=== PATIENT | female | born 1950 | race Caucasian/White ===

== ENCOUNTER 2016-08-20 15:19 | Observation (INO) ==
--- NOTE | 2016-08-20 15:28 | Emergency Department Note ---
Disposition Clinical Impression: Abdominal pain, Vomiting, Lactic acidosis, Abnormal urinalysis, Frail elderly, Leukocytosis, Hypokalemia, Abdominal pain, Abdominal pain, Left sided abdominal pain, Pneumobilia, Elevated C-reactive protein (CRP), Hypokalemia Disposition: Admitted As Inpatient Referrals: Arnold Tanner MD [Primary Care Provider] - General Adult HPI - General Chief complaint: ED Abdominal Pain Stated complaint: Lower bowel not working// sent from [facility] Time Seen by Provider: 08/20/16 15:27 Source: patient Limitations: no limitations - History of Present Illness HPI Narrative: 66-year-old female reports emergent department complaining of abdominal pain which has been present for about 2 days. She went to urgent care and reportedly they noticed an abnormal abdominal X-Ray series. They sent the patient to the ED for further evaluation regarding left-sided abdominal pain. They note a differential of possible bowel obstruction kidney stone or diverticulitis. The patient has had a history of diverticulitis remotely. The patient has had pain for a few days. She has had recurrent vomiting which has been nonbloody, but her last episode was wednesday. She does not take blood thinners. The patient has had a slight cough, there is no history of shortness of breath or chest pain. The patient does describe slight left neck pain anteriorly on occasion however this is not necessarily been associated with exertion.. There is no history of rash or flank pain. There is no history of syncope leg swelling or pain. No coughing up blood. The patient has no history of malignancy or previous DVT or PE. She has no known coronary disease. No history of injury. The patient reports significant abdominal pain , it hurts when she walks or moves or coughs. She had remote abdominal surgery involving a cholecystectomy and liver surgery per the patient. The patient has had no recent surgery. She is not known to be diabetic but is hypertensive and hyperlipidemic. There is no history of urinary symptomatology. Onset (ago): day(s) Pain Scale: 8 - Related Data Home Medications Medication Instructions Recorded Confirmed Albuterol Sulfate [Proair 90 mcg IH PRN PRN 10/23/15 08/20/16 Respiclick] FLUoxetine HCl [Prozac] 20 mg PO QAM 10/23/15 08/20/16 Hydrochlorothiazide 25 mg PO DAILY 10/23/15 08/20/16 Hydrocortisone [Cortef] 5 mg PO TID 10/23/15 08/20/16 LORazepam [Ativan] 1 mg PO QPM 10/23/15 08/20/16 Levothyroxine [Synthroid] 112 mcg PO 0630 10/23/15 08/20/16 Oxycodone HCl/Acetaminophen 1 each PO TID PRN 10/23/15 08/20/16 [Percocet 5-325 mg Tablet] Pravastatin Sodium [Pravachol] 80 mg PO QDPC 10/23/15 08/20/16 Tiotropium [place] [Spiriva 4 gm IH QAM 10/23/15 08/20/16 Respimat] Previous Rx's Medication Instructions Recorded Varenicline tartrate [Chantix 1 each PO AD #53 tab.ds.pk 10/27/15 Starter Month Pack] Allergies Allergy/AdvReac Type Severity Reaction Status Date / Time acetaminophen [From Vicodin] Allergy Shakiness Verified 08/20/16 16:13 hydrocodone [From Vicodin] Allergy Shakiness Verified 08/20/16 16:13 Iodinated Contrast Media - Allergy Rash Verified 08/20/16 16:13 Oral and [Iodinated Contrast Media - IV Dye] iodine Allergy Rash Verified 08/20/16 16:13 morphine Allergy Rash Verified 08/20/16 16:13 Penicillins [PCN] Allergy Rash Verified 08/20/16 16:13 All systems ED: reviewed and negative except as stated. 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 Absent: miosis, mydriasis - ENT ENT exam: normal exam, normal oropharynx, mucous membranes moist, TM's normal bilaterally, normal external ear exam - Neck Neck exam: Present: normal inspection, full ROM, trachea midline - Chest Chest inspection: Present: normal inspection, symmetric chest wall rise. Absent : tenderness - Respiratory Respiratory exam: Present: normal lung sounds bilaterally. Absent: respiratory distress - Cardiovascular Cardiovascular exam: Present: regular rate, normal rhythm, normal heart sounds - Abdominal Exam Abdominal exam: Present: soft, tenderness, incision, scar. Absent: distention, rebound, rigidity, trauma, psoas sign, obturator sign, Velazquez's sign, Rovsing's sign, tenderness at McBurney's Point, pulsatile mass, hernia Abdominal tenderness: Present: LUQ, LLQ, epigastrium, moderate - Extremities Exam Extremities exam: Present: normal inspection, full ROM, normal capillary refill. Absent: tenderness, pedal edema, joint swelling, calf tenderness - Expanded Lower Extremity Exam Neurovascular/Tendon exam: Absent: motor deficit, sensory deficit, tendon deficit, extremity cold to touch - Back Exam Back exam: Present: normal inspection, full ROM. Absent: tenderness, CVA tenderness (R), CVA tenderness (L), muscle spasm, vertebral tenderness - Neurological Exam Neurological exam: Present: alert, oriented X3, CN II-XII intact. Absent: motor sensory deficit - Psychiatric Psychiatric exam: Present: normal affect, normal mood - Skin Skin exam: Present: warm, dry, intact, normal color. Absent: rash, cyanosis, diaphoresis, erythema, pallor, mottled Course Course Narrative: Secondary abdominal exam reveals persistent mid upper and left upper abdominal pain. The patient seems to have improved with pain medication. Vital Signs Temperature 98.1 F 08/20/16 15:21 Pulse Rate 73 08/20/16 15:21 Respiratory Rate 18 08/20/16 15:21 Blood Pressure 156/75 08/20/16 15:21 O2 Sat by Pulse Oximetry 99 08/20/16 15:21 Temperature 98.1 F 08/20/16 15:21 Pulse Rate 65 08/20/16 17:38 Respiratory Rate 16 08/20/16 17:38 Blood Pressure 118/63 08/20/16 17:38 O2 Sat by Pulse Oximetry 97 08/20/16 17:38 Oxygen Delivery Oxygen Delivery Room Air Medical Decision Making - MDM Narrative Medical decision making narrative: The patient's CT chest abdomen pelvis are unrevealing. There appeared to be stable and chronic changes per the radiologist. Of note the patient's CRP is markedly elevated, she does have urinary changes. The patient's cardiac testing is negative. She was given Dilaudid and Zofran ED which did relieve her pain to a degree however she was significantly tender status post in the midepigastrium and left upper abdominal area. I reviewed the case with the patient, she reported significant pain, she did not feel she was well enough to go home. Based on the patient's abdominal pain, vascular risk factors, age, markedly elevated CRP and elevated lactate, I felt it may be reasonable to observe the patient in the hospital, I consulted the hospitalist regarding admission for undifferentiated abdominal pain, ischemia is a consideration. The patient's CPK is negative. She does have urinary changes, cultures have been ordered. The patient was given IV fluids in the ED. She is currently stable. - Lab Data Lab results reviewed: Yes I reviewed the patient's lab results. Result diagrams: 08/20/16 16:00 08/20/16 16:00 Lab Results 08/20/16 08/20/16 08/20/16 Range/Units 16:00 16:00 16:00 WBC 11.4 H (4.3-11.1) K/mcL RBC 4.89 (3.82-4.97) M/mcL Hgb 13.8 (11.5-15.4) g/dL Hct 42.9 (35.3-44.9) % MCV 87.7 (83.0-100.0) fL MCH 28.2 (28.0-33.3) pg MCHC 32.2 (31.6-35.5) g/dL RDW 14.6 H (11.5-14.5) % Plt Count 149 (140-400) K/mcL MPV 9.9 (9.4-12.4) fL Immature Gran % 0.4 (0-4) % Seg Neutrophils % 72.9 % Lymphocytes % 15.6 % Monocytes % 10.1 % Eosinophils % 0.6 % Basophils % 0.4 % Neutrophils # 8.3 (1.6-8.9) K/mcL Lymphocytes # 1.8 (0.6-4.6) K/mcL Monocytes # 1.2 (0.0-1.3) K/mcL Eosinophils # 0.1 (0.0-0.6) K/mcL Basophils # 0.1 (0.0-0.2) K/mcL PT 12.0 (9.4-12.1) Seconds INR 1.1 APTT 33.5 (26.0-36.0) Seconds Sodium 136 (136-145) mEq/L Potassium 3.3 L (3.5-4.5) mEq/L Chloride 100 (98-109) mEq/L Carbon Dioxide 24 (19-29) mEq/L BUN 15 (7-20) mg/dL Creatinine 0.72 (0.57-1.11) mg/dL Est GFR ( Amer) > 60 (> 60) Est GFR (Non-Af Amer) > 60 (> 60) BUN/Creatinine Ratio 21 (6-26) Glucose 104 H (70-99) mg/dL Calculated Osmolality 283 (280-300) Lactic Acid (0.5-2.2) mmol/L Calcium 9.6 (8.6-10.8) mg/dL Total Bilirubin 0.8 (0.2-1.2) mg/dL Direct Bilirubin 0.3 (0.0-0.5) mg/dL Indirect Bilirubin 0.5 (0.0-1.2) mg/dL AST 31 (5-34) Units/L ALT 37 (0-55) Units/L Alkaline Phosphatase 83 (38-126) Units/L Creatine Kinase (29-168) Units/L Troponin I (0-0.03) ng/mL C-Reactive Protein (Less than 5) mg/L B-Natriuretic Peptide (0-100) pg/mL Serum Total Protein 7.3 (6.0-8.3) g/dL Albumin 3.8 (3.5-5.0) g/dL Globulin 3.5 (2.4-3.5) g/dL Albumin/Globulin Ratio 1.1 (1.1-2.2) Lipase 5 L (8-78) Units/L Urine Color (Yellow) Urine Clarity (Clear) Urine pH (5.0-8.0) pH Units Ur Specific [place] (1.010-1.025) Urine Protein (Neg-Trace) mg/dL Urine Glucose (UA) (Normal) mg/dL Urine Ketones (Negative) mg/dL Urine Blood (Negative) Urine Nitrite (Negative) Urine Bilirubin (Negative) Urine Urobilinogen (Normal) mg/dL Ur Leukocyte Esterase (Negative) Urine Microscopic RBC (0-3) per hpf Urine Microscopic WBC (0-3) per hpf Ur Squamous Epith Cells (None-Few) per lpf Urine Bacteria (None-Few) per hpf Hyaline Casts (None-Few) per lpf Ur Culture Indicated? (NO) 08/20/16 08/20/16 08/20/16 Range/Units 16:00 16:00 16:00 WBC (4.3-11.1) K/mcL RBC (3.82-4.97) M/mcL Hgb (11.5-15.4) g/dL Hct (35.3-44.9) % MCV (83.0-100.0) fL MCH (28.0-33.3) pg MCHC (31.6-35.5) g/dL RDW (11.5-14.5) % Plt Count (140-400) K/mcL MPV (9.4-12.4) fL Immature Gran % (0-4) % Seg Neutrophils % % Lymphocytes % % Monocytes % % Eosinophils % % Basophils % % Neutrophils # (1.6-8.9) K/mcL Lymphocytes # (0.6-4.6) K/mcL Monocytes # (0.0-1.3) K/mcL Eosinophils # (0.0-0.6) K/mcL Basophils # (0.0-0.2) K/mcL PT (9.4-12.1) Seconds INR APTT (26.0-36.0) Seconds Sodium (136-145) mEq/L Potassium (3.5-4.5) mEq/L Chloride (98-109) mEq/L Carbon Dioxide (19-29) mEq/L BUN (7-20) mg/dL Creatinine (0.57-1.11) mg/dL Est GFR ( Amer) (> 60) Est GFR (Non-Af Amer) (> 60) BUN/Creatinine Ratio (6-26) Glucose (70-99) mg/dL Calculated Osmolality (280-300) Lactic Acid 2.6 H (0.5-2.2) mmol/L Calcium (8.6-10.8) mg/dL Total Bilirubin (0.2-1.2) mg/dL Direct Bilirubin (0.0-0.5) mg/dL Indirect Bilirubin (0.0-1.2) mg/dL AST (5-34) Units/L ALT (0-55) Units/L Alkaline Phosphatase (38-126) Units/L Creatine Kinase (29-168) Units/L Troponin I 0.00 (0-0.03) ng/mL C-Reactive Protein 171 H (Less than 5) mg/L B-Natriuretic Peptide (0-100) pg/mL Serum Total Protein (6.0-8.3) g/dL Albumin (3.5-5.0) g/dL Globulin (2.4-3.5) g/dL Albumin/Globulin Ratio (1.1-2.2) Lipase (8-78) Units/L Urine Color (Yellow) Urine Clarity (Clear) Urine pH (5.0-8.0) pH Units Ur Specific [place] (1.010-1.025) Urine Protein (Neg-Trace) mg/dL Urine Glucose (UA) (Normal) mg/dL Urine Ketones (Negative) mg/dL Urine Blood (Negative) Urine Nitrite (Negative) Urine Bilirubin (Negative) Urine Urobilinogen (Normal) mg/dL Ur Leukocyte Esterase (Negative) Urine Microscopic RBC (0-3) per hpf Urine Microscopic WBC (0-3) per hpf Ur Squamous Epith Cells (None-Few) per lpf Urine Bacteria (None-Few) per hpf Hyaline Casts (None-Few) per lpf Ur Culture Indicated? (NO) 08/20/16 08/20/16 08/20/16 Range/Units 16:00 16:00 17:28 WBC (4.3-11.1) K/mcL RBC (3.82-4.97) M/mcL Hgb (11.5-15.4) g/dL Hct (35.3-44.9) % MCV (83.0-100.0) fL MCH (28.0-33.3) pg MCHC (31.6-35.5) g/dL RDW (11.5-14.5) % Plt Count (140-400) K/mcL MPV (9.4-12.4) fL Immature Gran % (0-4) % Seg Neutrophils % % Lymphocytes % % Monocytes % % Eosinophils % % Basophils % % Neutrophils # (1.6-8.9) K/mcL Lymphocytes # (0.6-4.6) K/mcL Monocytes # (0.0-1.3) K/mcL Eosinophils # (0.0-0.6) K/mcL Basophils # (0.0-0.2) K/mcL PT (9.4-12.1) Seconds INR APTT (26.0-36.0) Seconds Sodium (136-145) mEq/L Potassium (3.5-4.5) mEq/L Chloride (98-109) mEq/L Carbon Dioxide (19-29) mEq/L BUN (7-20) mg/dL Creatinine (0.57-1.11) mg/dL Est GFR ( Amer) (> 60) Est GFR (Non-Af Amer) (> 60) BUN/Creatinine Ratio (6-26) Glucose (70-99) mg/dL Calculated Osmolality (280-300) Lactic Acid (0.5-2.2) mmol/L Calcium (8.6-10.8) mg/dL Total Bilirubin (0.2-1.2) mg/dL Direct Bilirubin (0.0-0.5) mg/dL Indirect Bilirubin (0.0-1.2) mg/dL AST (5-34) Units/L ALT (0-55) Units/L Alkaline Phosphatase (38-126) Units/L Creatine Kinase 56 (29-168) Units/L Troponin I (0-0.03) ng/mL C-Reactive Protein (Less than 5) mg/L B-Natriuretic Peptide 41 (0-100) pg/mL Serum Total Protein (6.0-8.3) g/dL Albumin (3.5-5.0) g/dL Globulin (2.4-3.5) g/dL Albumin/Globulin Ratio (1.1-2.2) Lipase (8-78) Units/L Urine Color Dark Yellow (Yellow) Urine Clarity Cloudy A (Clear) Urine pH 7.0 (5.0-8.0) pH Units Ur Specific [place] 1.023 (1.010-1.025) Urine Protein Trace (Neg-Trace) mg/dL Urine Glucose (UA) Normal (Normal) mg/dL Urine Ketones Negative (Negative) mg/dL Urine Blood Moderate H (Negative) Urine Nitrite Negative (Negative) Urine Bilirubin Small H (Negative) Urine Urobilinogen Normal (Normal) mg/dL Ur Leukocyte Esterase Trace H (Negative) Urine Microscopic RBC 15-30 H (0-3) per hpf Urine Microscopic WBC 0-3 (0-3) per hpf Ur Squamous Epith Cells Many H (None-Few) per lpf Urine Bacteria None Seen (None-Few) per hpf Hyaline Casts None Seen (None-Few) per lpf Ur Culture Indicated? YES A (NO) - Radiology Data Radiology results reviewed: Yes I reviewed the patient's radiology results.
[2016-08-20] MEDS ORDERED: *HR* HYDROmorphone (PF) 1 MG/ML SYRINGE IVP ONE (15:42)
[2016-08-20] MEDS ORDERED: Ondansetron 4 MG/2 ML VIAL IVP ONE (15:42)
[2016-08-20 16:18] LABS: Basophils # 0.1 K/mcL (0.0-0.2); Basophils % 0.4 %; Eosinophils # 0.1 K/mcL (0.0-0.6); Eosinophils % 0.6 %; Hematocrit 42.9 % (35.3-44.9); Hemoglobin 13.8 g/dL (11.5-15.4); Immature Granulocytes % 0.4 % (0-4); Lymphocytes # 1.8 K/mcL (0.6-4.6); Lymphocytes % 15.6 %; Mean Corpuscular HGB Conc 32.2 g/dL (31.6-35.5); Mean Corpuscular Hemoglobin 28.2 pg (28.0-33.3); Mean Corpuscular Volume 87.7 fL (83.0-100.0); Mean Platelet Volume 9.9 fL (9.4-12.4); Monocytes # 1.2 K/mcL (0.0-1.3); Monocytes % 10.1 %; Neutrophils # 8.3 K/mcL (1.6-8.9); Platelet Count 149 K/mcL (140-400); Red Blood Count 4.89 M/mcL (3.82-4.97); Red Cell Distribution Width 14.6 % (11.5-14.5); Segmented Neutrophils % 72.9 %
[2016-08-20 16:23] LABS: INR 1.1
[2016-08-20 16:25] LABS: Activated Partial Thrombo Time 33.5 Seconds (26.0-36.0)
[2016-08-20 16:34] LABS: Alanine Aminotransferase 37 Units/L (0-55); Albumin 3.8 g/dL (3.5-5.0); Albumin/Globulin Ratio 1.1 (1.1-2.2); Alkaline Phosphatase 83 Units/L (38-126); Aspartate Amino Transferase 31 Units/L (5-34); BUN/Creatinine Ratio 21 (6-26); Bilirubin,Direct 0.3 mg/dL (0.0-0.5); Bilirubin,Indirect 0.5 mg/dL (0.0-1.2); Bilirubin,Total 0.8 mg/dL (0.2-1.2); Blood Urea Nitrogen 15 mg/dL (7-20); Calcium 9.6 mg/dL (8.6-10.8); Carbon Dioxide 24 mEq/L (19-29); Chloride 100 mEq/L (98-109); Globulin 3.5 g/dL (2.4-3.5); Glucose 104 mg/dL (70-99); Lipase 5 Units/L (8-78); Osmolality,Calculated 283 (280-300); Potassium 3.3 mEq/L (3.5-4.5); Sodium 136 mEq/L (136-145); Total Protein 7.3 g/dL (6.0-8.3); eGFR For African Americans > 60 (> 60); eGFR For Non-African Americans > 60 (> 60)
[2016-08-20] MEDS ORDERED: 0.9 % Sodium Chloride 1,000 ML IVC ONE (17:05)
[2016-08-20 17:40] LABS: Bilirubin,Urine Small (Negative); Blood,Urine Moderate (Negative); Clarity,Urine Cloudy (Clear); Color,Urine Dark Yellow (Yellow); Glucose,Urine (UA) Normal (Normal); Ketones,Urine Negative (Negative); Leukocyte Esterase,Urine Trace (Negative); Nitrite,Urine Negative (Negative); Protein,Urine Trace mg/dL (Neg-Trace); Specific Gravity,Urine 1.023 (1.010-1.025); Urobilinogen,Urine Normal (Normal)
[2016-08-20 17:41] LABS: Bacteria,Urine None Seen per hpf (None-Few); Hyaline Casts,Urine None Seen per lpf (None-Few); Squamous Epithelial Cell,Urine Many per lpf (None-Few); WBC,Urine 0-3 per hpf (0-3)
[2016-08-20 17:50] LABS: RBC,Urine 15-30 per hpf (0-3)
[2016-08-20] MEDS ORDERED: *HR* LORazepam 1 MG TABLET PO PRN (18:57)
[2016-08-20] MEDS ORDERED: Ondansetron 4 MG/2 ML VIAL IVP PRN (19:01)
[2016-08-20] MEDS ORDERED: Naloxone 0.4 MG/ML INJ IVP PRN (19:01)
[2016-08-20] MEDS ORDERED: *HR* HYDROmorphone (PF) 1 MG/ML SYRINGE IVP PRN (19:05)
--- NOTE | 2016-08-20 19:12 | Internal Med History&Physical ---
Date of Encounter: 08/20/16 Time of Encounter: 18:35 Internal Medicine - H&P: HPI Chief complaint: Abdominal pain, nausea x 2 days. Admitted From: Emergency Dept Plans for Post Hospital Care: Home History of present illness: Ms. Stokes is a 66 year old with multiple cardiovascular risk factors (without diagnosed CAD), and continuing smoker, diverticulosis with few episodes of diverticulitis presents with a 2-day history of epigastric and upper left-sided abdominal pain, associated with nausea, she had a few vomiting episodes, she reports sore throat which she relates to vomiting. Abdominal pain is worse with movement and coughing. She had vague upper sternal chest pain at rest, as well as mild left-sided neck pain, on the first day, though this has since resolved. No diarrhea, no hematochezia, no hematemesis, no fever, no other, respiratory, urinary symptoms, no rash. She reports that she felt some fullness in both ears as a prodrome to full-onset of symptoms. Abdominal pain was however sudden. No sick contacts, no unusual ingestion. No prior history of abdominal pain related to meals. No weight loss. The personal history history of acute pancreatitis, malignancy or DVT/PE. She had remote history of open cholecystectomy and bile duct surgery due to impacted gall stone. LAST COLONOSCOPY WAS IN 2000 (polyps removed). She has chronic back pain from 2 prior back surgery which she reports is controlled with maintenance dose of Percocet. She denies other symptoms on ROS. The She is FULL CODE (but does not want to be maintained in a prolonged vegetative state) as per discussion. She nominates her daughter, Nissa Wolf as her NOK/POA ([phone], ). 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 Alcohol use: Reports: none Drug use: Reports: none Family history: reviewed , non-contributory. ROS: A 10-point ROS was performed, positives and relevant negatives are detailed , system-symptom not mentioned is assumed negative unless otherwise stated. Positives: Abdominal pain, nausea, vomiting Negatives: No PND or orthopnea, no chest pain no sore-throat, no hemoptysis, hematemesis, or hematochezia, no abdominal pain or diarrhea, no urinary or new- onset neurological symptoms. Vital Signs Temperature 98.1 F 08/20/16 15:21 Pulse Rate 73 08/20/16 15:21 Respiratory Rate 18 08/20/16 15:21 Blood Pressure 156/75 08/20/16 15:21 O2 Sat by Pulse Oximetry 99 08/20/16 15:21 Temperature 98.1 F 08/20/16 15:21 Pulse Rate 65 08/20/16 17:38 Respiratory Rate 16 08/20/16 17:38 Blood Pressure 118/63 08/20/16 17:38 O2 Sat by Pulse Oximetry 97 08/20/16 17:38 In obvious distress, non-toxic looking. not pale, anicteric, afebrile, acyanotic. Moist mucosa, no thrush, no mucositis or glossitis HEENT: No JVD, no cervical or axillary lymphadenopathy, I did not examine her pharynx Chest : CTAB, Heart: RRR, HS1/2, Abdomen: rather vertical long right sub-coastal, access for open cholecystectomy , soft, tender+++ in the epigastrium, tender++ in the left uper quadrant, no guarding, no masses, bowel sounds+ SIDE LASTER: AAO X 3, no gross focal neurological signs. Skin: No active skin lesion (no rash, petechiae, purpura), no mass lesions. Extremities: normal pedal pulses, no calf tenderness. no axillary or inguinal lymphadenopathy. Lab Results 08/20/16 08/20/16 08/20/16 Range/Units 16:00 16:00 16:00 WBC 11.4 H (4.3-11.1) K/mcL RBC 4.89 (3.82-4.97) M/mcL Hgb 13.8 (11.5-15.4) g/dL Hct 42.9 (35.3-44.9) % MCV 87.7 (83.0-100.0) fL MCH 28.2 (28.0-33.3) pg MCHC 32.2 (31.6-35.5) g/dL RDW 14.6 H (11.5-14.5) % Plt Count 149 (140-400) K/mcL MPV 9.9 (9.4-12.4) fL Immature Gran % 0.4 (0-4) % Seg Neutrophils % 72.9 % Lymphocytes % 15.6 % Monocytes % 10.1 % Eosinophils % 0.6 % Basophils % 0.4 % Neutrophils # 8.3 (1.6-8.9) K/mcL Lymphocytes # 1.8 (0.6-4.6) K/mcL Monocytes # 1.2 (0.0-1.3) K/mcL Eosinophils # 0.1 (0.0-0.6) K/mcL Basophils # 0.1 (0.0-0.2) K/mcL PT 12.0 (9.4-12.1) Seconds INR 1.1 APTT 33.5 (26.0-36.0) Seconds Sodium 136 (136-145) mEq/L Potassium 3.3 L (3.5-4.5) mEq/L Chloride 100 (98-109) mEq/L Carbon Dioxide 24 (19-29) mEq/L BUN 15 (7-20) mg/dL Creatinine 0.72 (0.57-1.11) mg/dL Est GFR ( Amer) > 60 (> 60) Est GFR (Non-Af Amer) > 60 (> 60) BUN/Creatinine Ratio 21 (6-26) Glucose 104 H (70-99) mg/dL Calculated Osmolality 283 (280-300) Lactic Acid (0.5-2.2) mmol/L Calcium 9.6 (8.6-10.8) mg/dL Total Bilirubin 0.8 (0.2-1.2) mg/dL Direct Bilirubin 0.3 (0.0-0.5) mg/dL Indirect Bilirubin 0.5 (0.0-1.2) mg/dL AST 31 (5-34) Units/L ALT 37 (0-55) Units/L Alkaline Phosphatase 83 (38-126) Units/L Creatine Kinase (29-168) Units/L Troponin I (0-0.03) ng/mL C-Reactive Protein (Less than 5) mg/L B-Natriuretic Peptide (0-100) pg/mL Serum Total Protein 7.3 (6.0-8.3) g/dL Albumin 3.8 (3.5-5.0) g/dL Globulin 3.5 (2.4-3.5) g/dL Albumin/Globulin Ratio 1.1 (1.1-2.2) Lipase 5 L (8-78) Units/L Urine Color (Yellow) Urine Clarity (Clear) Urine pH (5.0-8.0) pH Units Ur Specific Hoffman (1.010-1.025) Urine Protein (Neg-Trace) mg/dL Urine Glucose (UA) (Normal) mg/dL Urine Ketones (Negative) mg/dL Urine Blood (Negative) Urine Nitrite (Negative) Urine Bilirubin (Negative) Urine Urobilinogen (Normal) mg/dL Ur Leukocyte Esterase (Negative) Urine Microscopic RBC (0-3) per hpf Urine Microscopic WBC (0-3) per hpf Ur Squamous Epith Cells (None-Few) per lpf Urine Bacteria (None-Few) per hpf Hyaline Casts (None-Few) per lpf Ur Culture Indicated? (NO) 08/20/16 08/20/16 08/20/16 Range/Units 16:00 16:00 16:00 WBC (4.3-11.1) K/mcL RBC (3.82-4.97) M/mcL Hgb (11.5-15.4) g/dL Hct (35.3-44.9) % MCV (83.0-100.0) fL MCH (28.0-33.3) pg MCHC (31.6-35.5) g/dL RDW (11.5-14.5) % Plt Count (140-400) K/mcL MPV (9.4-12.4) fL Immature Gran % (0-4) % Seg Neutrophils % % Lymphocytes % % Monocytes % % Eosinophils % % Basophils % % Neutrophils # (1.6-8.9) K/mcL Lymphocytes # (0.6-4.6) K/mcL Monocytes # (0.0-1.3) K/mcL Eosinophils # (0.0-0.6) K/mcL Basophils # (0.0-0.2) K/mcL PT (9.4-12.1) Seconds INR APTT (26.0-36.0) Seconds Sodium (136-145) mEq/L Potassium (3.5-4.5) mEq/L Chloride (98-109) mEq/L Carbon Dioxide (19-29) mEq/L BUN (7-20) mg/dL Creatinine (0.57-1.11) mg/dL Est GFR ( Amer) (> 60) Est GFR (Non-Af Amer) (> 60) BUN/Creatinine Ratio (6-26) Glucose (70-99) mg/dL Calculated Osmolality (280-300) Lactic Acid 2.6 H (0.5-2.2) mmol/L Calcium (8.6-10.8) mg/dL Total Bilirubin (0.2-1.2) mg/dL Direct Bilirubin (0.0-0.5) mg/dL Indirect Bilirubin (0.0-1.2) mg/dL AST (5-34) Units/L ALT (0-55) Units/L Alkaline Phosphatase (38-126) Units/L Creatine Kinase (29-168) Units/L Troponin I 0.00 (0-0.03) ng/mL C-Reactive Protein 171 H (Less than 5) mg/L B-Natriuretic Peptide (0-100) pg/mL Serum Total Protein (6.0-8.3) g/dL Albumin (3.5-5.0) g/dL Globulin (2.4-3.5) g/dL Albumin/Globulin Ratio (1.1-2.2) Lipase (8-78) Units/L Urine Color (Yellow) Urine Clarity (Clear) Urine pH (5.0-8.0) pH Units Ur Specific Hoffman (1.010-1.025) Urine Protein (Neg-Trace) mg/dL Urine Glucose (UA) (Normal) mg/dL Urine Ketones (Negative) mg/dL Urine Blood (Negative) Urine Nitrite (Negative) Urine Bilirubin (Negative) Urine Urobilinogen (Normal) mg/dL Ur Leukocyte Esterase (Negative) Urine Microscopic RBC (0-3) per hpf Urine Microscopic WBC (0-3) per hpf Ur Squamous Epith Cells (None-Few) per lpf Urine Bacteria (None-Few) per hpf Hyaline Casts (None-Few) per lpf Ur Culture Indicated? (NO) 08/20/16 08/20/16 08/20/16 Range/Units 16:00 16:00 17:28 WBC (4.3-11.1) K/mcL RBC (3.82-4.97) M/mcL Hgb (11.5-15.4) g/dL Hct (35.3-44.9) % MCV (83.0-100.0) fL MCH (28.0-33.3) pg MCHC (31.6-35.5) g/dL RDW (11.5-14.5) % Plt Count (140-400) K/mcL MPV (9.4-12.4) fL Immature Gran % (0-4) % Seg Neutrophils % % Lymphocytes % % Monocytes % % Eosinophils % % Basophils % % Neutrophils # (1.6-8.9) K/mcL Lymphocytes # (0.6-4.6) K/mcL Monocytes # (0.0-1.3) K/mcL Eosinophils # (0.0-0.6) K/mcL Basophils # (0.0-0.2) K/mcL PT (9.4-12.1) Seconds INR APTT (26.0-36.0) Seconds Sodium (136-145) mEq/L Potassium (3.5-4.5) mEq/L Chloride (98-109) mEq/L Carbon Dioxide (19-29) mEq/L BUN (7-20) mg/dL Creatinine (0.57-1.11) mg/dL Est GFR ( Amer) (> 60) Est GFR (Non-Af Amer) (> 60) BUN/Creatinine Ratio (6-26) Glucose (70-99) mg/dL Calculated Osmolality (280-300) Lactic Acid (0.5-2.2) mmol/L Calcium (8.6-10.8) mg/dL Total Bilirubin (0.2-1.2) mg/dL Direct Bilirubin (0.0-0.5) mg/dL Indirect Bilirubin (0.0-1.2) mg/dL AST (5-34) Units/L ALT (0-55) Units/L Alkaline Phosphatase (38-126) Units/L Creatine Kinase 56 (29-168) Units/L Troponin I (0-0.03) ng/mL C-Reactive Protein (Less than 5) mg/L B-Natriuretic Peptide 41 (0-100) pg/mL Serum Total Protein (6.0-8.3) g/dL Albumin (3.5-5.0) g/dL Globulin (2.4-3.5) g/dL Albumin/Globulin Ratio (1.1-2.2) Lipase (8-78) Units/L Urine Color Dark Yellow (Yellow) Urine Clarity Cloudy A (Clear) Urine pH 7.0 (5.0-8.0) pH Units Ur Specific Hoffman 1.023 (1.010-1.025) Urine Protein Trace (Neg-Trace) mg/dL Urine Glucose (UA) Normal (Normal) mg/dL Urine Ketones Negative (Negative) mg/dL Urine Blood Moderate H (Negative) Urine Nitrite Negative (Negative) Urine Bilirubin Small H (Negative) Urine Urobilinogen Normal (Normal) mg/dL Ur Leukocyte Esterase Trace H (Negative) Urine Microscopic RBC 15-30 H (0-3) per hpf Urine Microscopic WBC 0-3 (0-3) per hpf Ur Squamous Epith Cells Many H (None-Few) per lpf Urine Bacteria None Seen (None-Few) per hpf Hyaline Casts None Seen (None-Few) per lpf Ur Culture Indicated? YES A (NO) Non-contrast CT chest/abdomen: non-acute., no nephrolithisiasis or obstructive uropathy, no perinephric stranding, no evidence of enteritis, colitis or diverticulitis, no bowel obstruction. IMP Acute abdomen: differentials include bowel ischemia , Coxsackie B infection with pleurisy, acute gastritis, acute on chronic adrenal insufficiency Microscopic hematuria Lactic acidosis Hypokalemia Chronic morbidities HTN HLD Chronic back pain Chronic tobacco abuse Chronic adrenal insufficiency COPD /asthma stable Hypothyroidism PLAN Admit Keep NPO Double home dose of hydrocortisone MRA abdomen/pelvis WITHOUT CONTRAST (due to history of contrast allergy) Coxsackie B antibodies IV Protonix 40 mg BID. Optimal analgesia with hydromorphone. Serial abdominal examination Repeat lactate. CBC/BMP in the AM Continue other essential medications of chronic morbidities DVT prophylaxis with Lovenox 40mg SC QD I will not consider surgical opinion at this time until more information is available. The patient is stable. I discussed my assessment with the patient, her daughter was at bedside, she verbalized understanding and is agreeable tyo admission. 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) Psychiatric history: ADHD, depression - Past Surgical History Surgical History: cholecystectomy, hysterectomy - Social History Smoking Status: Current every day smoker Smokeless Tobacco Status: No Alcohol use: none Drug use: none Internal Medicine - H&P: Meds Albuterol Sulfate [Proair Respiclick] 2 puff IH Q4H PRN 10/23/15 [History] FLUoxetine HCl [Prozac] 20 mg PO QAM 10/23/15 [History] Hydrochlorothiazide 25 mg PO DAILY 10/23/15 [History] Hydrocortisone [Cortef] 5 mg PO QPM 10/23/15 [History] LORazepam [Ativan] 1 mg PO BID PRN 10/23/15 [History] Levothyroxine [Synthroid] 112 mcg PO QAM 10/23/15 [History] Oxycodone HCl/Acetaminophen [Percocet 5-325 mg Tablet] 0.5 - 1 each PO TID PRN 10/23/15 [History] Pravastatin Sodium [Pravachol] 80 mg PO QPM 10/23/15 [History] Hydrocortisone [Cortef] 20 mg PO QAM 08/20/16 [History] Tiotropium [Spiriva] 18 mcg IH DAILY PRN 08/20/16 [History] Allergies acetaminophen [From Vicodin] Allergy (Verified 08/20/16 16:13) Shakiness hydrocodone [From Vicodin] Allergy (Verified 08/20/16 16:13) Shakiness Iodinated Contrast Media - Oral and [Iodinated Contrast Media - IV Dye] Allergy (Verified 08/20/16 16:13) Rash iodine Allergy (Verified 08/20/16 16:13) Rash morphine Allergy (Verified 08/20/16 16:13) Rash Penicillins [PCN] Allergy (Verified 08/20/16 16:13) Rash All Systems PM: A 10-system review of systems was performed and is negative for pertinent findings except as documented above in the HPI. - Constitutional Vitals: Temp Pulse Resp BP Pulse Ox 98.1 F 64 17 125/72 97 08/20/16 15:21 08/20/16 18:41 08/20/16 18:52 08/20/16 18:52 08/20/16 18:41 Internal Med - H&P Results - Labs CBC & Chem 7: 08/20/16 16:00 08/20/16 16:00
[2016-08-20] MEDS ORDERED: Pantoprazole 40 MG VIAL IVP SCH (19:15)
[2016-08-20] MEDS ORDERED: Albuterol 2.5 MG/3 ML NEBULIZER IH PRN (20:06)
[2016-08-20] MEDS: Nicotine 21 MG PATCH.TD24 TD SCH (21:00)
[2016-08-20] MEDS: Pantoprazole 40 MG VIAL IVP SCH (21:01)
[2016-08-20] MEDS: 0.9 % Sodium Chloride w KCl 20 MEQ/1,000 ML MLS IVC SCH (21:02)
[2016-08-21] MEDS: *HR* HYDROmorphone (PF) 1 MG/ML SYRINGE IVP PRN ×4 (01:31→18:05)
[2016-08-21] MEDS: 0.9 % Sodium Chloride w KCl 20 MEQ/1,000 ML MLS IVC SCH ×2 (03:31→12:16)
[2016-08-21 04:43] LABS: Basophils % 0.6 %; Eosinophils # 0.2 K/mcL (0.0-0.6); Eosinophils % 2.4 %; Hematocrit 37.9 % (35.3-44.9); Immature Granulocytes % 0.5 % (0-4); Lymphocytes # 1.7 K/mcL (0.6-4.6); Lymphocytes % 25.6 %; Mean Corpuscular HGB Conc 31.4 g/dL (31.6-35.5); Mean Corpuscular Hemoglobin 27.7 pg (28.0-33.3); Mean Corpuscular Volume 88.3 fL (83.0-100.0); Mean Platelet Volume 9.5 fL (9.4-12.4); Monocytes # 0.8 K/mcL (0.0-1.3); Monocytes % 12.2 %; Neutrophils # 3.9 K/mcL (1.6-8.9); Platelet Count 129 K/mcL (140-400); Red Blood Count 4.29 M/mcL (3.82-4.97); Red Cell Distribution Width 14.7 % (11.5-14.5); Segmented Neutrophils % 58.7 %
[2016-08-21 04:44] LABS: Hemoglobin 11.9 g/dL (11.5-15.4)
[2016-08-21 04:57] LABS: BUN/Creatinine Ratio 21 (6-26); Blood Urea Nitrogen 13 mg/dL (7-20); Calcium 8.3 mg/dL (8.6-10.8); Carbon Dioxide 24 mEq/L (19-29); Chloride 106 mEq/L (98-109); Glucose 90 mg/dL (70-99); Osmolality,Calculated 286 (280-300); Potassium 3.7 mEq/L (3.5-4.5); Sodium 138 mEq/L (136-145); eGFR For African Americans > 60 (> 60); eGFR For Non-African Americans > 60 (> 60)
[2016-08-21] MEDS ORDERED: *HR* Enoxaparin 40 MG/0.4 ML SYRINGE SQ SCH (06:00)
[2016-08-21] MEDS: Pantoprazole 40 MG VIAL IVP SCH (06:02)
[2016-08-21] MEDS: Nicotine 21 MG PATCH.TD24 TD SCH (07:46)
[2016-08-21] MEDS ORDERED: FLUoxetine 20 MG CAPSULE PO SCH (09:00)
[2016-08-21] MEDS ORDERED: Hydrocortisone 10 MG TABLET PO SCH ×2 (09:00→18:00)
--- NOTE | 2016-08-21 16:31 | Electrocardiograph Report ---
[place] [id number] Test Date: 2016-08-20 Pat Name: Marium Stokes Department: [id number] Room: 3A Gender: F Radiologic Therapist: : 1950 Requested By: Oscar Escobar Order Number: [id number] Reading MD: Nayeli Perdue Measurements Intervals [place] Rate: 68 P: 25 ND: 172 QRS: -3 QRSD: 109 T: 48 QT: 427 QTc: 445 Interpretive Statements SINUS RHYTHM Electronically Signed On 08-21-2016 16:29:59 EST by Nayeli Perdue
--- NOTE | 2016-08-21 18:23 | Discharge Summary ---
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 Home Medications: Albuterol Sulfate [Proair Respiclick] 2 puff IH Q4H PRN 10/23/15 [History] FLUoxetine HCl [Prozac] 20 mg PO QAM 10/23/15 [History] Hydrochlorothiazide 25 mg PO DAILY 10/23/15 [History] Hydrocortisone [Cortef] 5 mg PO QPM 10/23/15 [History] LORazepam [Ativan] 1 mg PO BID PRN 10/23/15 [History] Levothyroxine [Synthroid] 112 mcg PO QAM 10/23/15 [History] Oxycodone HCl/Acetaminophen [Percocet 5-325 mg Tablet] 0.5 - 1 each PO TID PRN 10/23/15 [History] Pravastatin Sodium [Pravachol] 80 mg PO QPM 10/23/15 [History] Hydrocortisone [Cortef] 20 mg PO QAM 08/20/16 [History] Tiotropium [Spiriva] 18 mcg IH DAILY PRN 08/20/16 [History] Benzocaine/Menthol Nimesh [Cepacol Sore Throat Lozenge] 1 each MM Q2H PRN #10 lozenge 08/21/16 [Rx] Omeprazole [PriLOSEC] 40 mg PO DAILY #30 capsule. 08/21/16 [Rx] Allergies/Adverse Reactions: Allergies acetaminophen [From Vicodin] Allergy (Verified 08/20/16 16:13) Shakiness hydrocodone [From Vicodin] Allergy (Verified 08/20/16 16:13) Shakiness Iodinated Contrast Media - Oral and [Iodinated Contrast Media - IV Dye] Allergy (Verified 08/20/16 16:13) Rash iodine Allergy (Verified 08/20/16 16:13) Rash morphine Allergy (Verified 08/20/16 16:13) Rash Penicillins [PCN] Allergy (Verified 08/20/16 16:13) Rash Date of admission: 08/20/16 18:37 Primary care physician: Arnold Tanner MD Discharging clinician: Madan Ge Anticipated date of discharge: 08/21/16 - Patient Status Disposition: Home, Self-Care Condition: Good Functional capacity at discharge: independent ambulation Overall status at discharge: patient is progressing back to baseline - Discharge Instructions Follow Up With: Arnold Tanner MD [Primary Care Provider] - Forms: ED Satisfaction Letter, Work/School Release - Diet and Activity Activity: resume usual activities as tolerated Diet: low fat, low cholesterol, low salt diet Interval History: See below Hospital course: Ms. Stokes is a 66 year old with multiple cardiovascular risk factors (without diagnosed CAD), and continuing smoker, Pituitary insufficiency and adrenal adenoma, diverticulosis with few episodes of diverticulitis presents with a 2- day history of epigastric and upper left-sided abdominal pain, associated with nausea, she had a few vomiting episodes, she reports sore throat which she relates to vomiting. No diarrhea, no hematochezia, no hematemesis, no fever, no other, respiratory, urinary symptoms, no rash. She was admitted to observation for management of abdomina l pain with suspicion for acute abdomen and lactic acidosis Work up on admission revealed leukocytosis, hypokalemia, and elevated lactate to 2.6. Non-contrast CT chest/abdomen: non-acute., no nephrolithisiasis or obstructive uropathy, no perinephric stranding, no evidence of enteritis, colitis or diverticulitis, no bowel obstruction. She is seen at bedside this morning with no new complains. She reports improvement in her abdominal pain Examination of her abdomen did not reveal any acute findings or peritoneal signs Due to patient's allergy to contrast, we did not obtain a CT with contrast or MRA, abdominal CT without contrast was unremarkable Patient's blood work from today showed improvement I suspect she had gastritis, possibly viral She remained afebrile and was able to tolerate po without adverse effects She is encouraged to stop smoking Follow up with PCP and continue her current home meds Time spent discussing smoking cessation with patient: 3 to 10 minutes (3 minutes ) - Time Spent with Patient Total time spent providing and/or coordinating discharge services: Less than 30 minutes - Constitutional Vitals: Temp Pulse Resp BP Pulse Ox 98.3 F 73 14 119/56 94 L 08/21/16 15:18 08/21/16 15:18 08/21/16 15:18 08/21/16 15:18 08/21/16 15:18 General appearance: Present: A&O X 3, pleasant, no acute distress - Head Head exam: Present: atraumatic, normocephalic - Eye Eye exam: Present: PERRL, conjuntiva pink, sclera anicteric Pupils: Present: PERRL - Neck Neck exam general surgery: Present: supple, trachea midline. Absent: lymphadenopathy - Respiratory Respiratory exam: Present: CTAB. Absent: accessory muscle use, rales, rhonchi, wheezes - Cardiovascular Cardiovascular exam: Present: RRR, +S1, +S2. Absent: diastolic murmur, gallop, rubs, systolic murmur - GI/Abdominal GI/Abdominal exam: Present: normal bowel sounds, soft, no peritoneal signs. Absent: distended, tenderness - Extremities Exam Extremities exam: Present: warm, radial pulses palpable and symetrical. Absent : calf tenderness, cyanotic, pedal edema - Back Exam Back exam: Absent: CVA tenderness (L), CVA tenderness (R) - Neurological Exam Neurological exam: Present: CN II-XII intact, oriented X3, no focal deficits. Absent: pronater drift, facial droop, speech deficit - Skin Skin exam: Present: dry, intact
[2016-08-21 18:27] VITALS: BP 136/83
[2016-08-29 23:57] LABS: Coxsackie B Type 1 Antibody <1:10 (<1:10); Coxsackie B Type 5 Antibody <1:10 (<1:10)
[2016-08-30 09:57] LABS: Coxsackie B Type 6 Antibody <1:10 (<1:10)
== END 2016-08-21 18:54 | disposition home or self-care (01) ==
LOC: 3ANU 15:19 → EMEROO 15:19 → SUATTDRO 18:37 → 3ANU 18:57
PROVIDERS: ADMIT Family Medicine; ATTEND Internal Medicine

== ENCOUNTER 2018-01-05 13:15 | Inpatient (IN) ==
[2018-01-05] MEDS ORDERED: Naloxone 0.4 MG/ML INJ IVP PRN (15:58)
[2018-01-05] MEDS ORDERED: Potassium Chloride 40 MEQ, Lidocaine 1% 2 ML in D5% in Water 500 ML IVPB ONE (15:59)
--- NOTE | 2018-01-05 16:03 | Internal Med History&Physical ---
Date of Encounter: 01/05/18 Time of Encounter: 16:01 Internal Medicine - H&P: HPI Chief complaint: abdominal pain Admitted From: Direct Admit Plans for Post Hospital Care: Home History of present illness: Ms. Stokes is a 67 year old female with h/o hyperlipidemia, hypertension, hypothyroidism, adrenal insufficiency who is transferred from [facility] for small bowel obstruction. The patient started experiencing symptoms yesterday night. She had dinner fine with no issues. Before going to bed she says she started feeling lower abdominal pain and nauseous. Throughout the night she had multiple episodes of vomiting and continuous nausea. She could not sleep at all. She did have a normal consistency bowel movement this morning. This morning she continued to have symptoms and went to [facility] to get evaluated where she was diagnosed with partial small bowel obstruction versus adynamic ileus. Dr. Dejesus was contacted and recommended transferring to a facility where he will see the patient in consultation. He did recommend a CT abdomen and pelvis to be done with oral contrast upon transfer here. The patient refused an NG tube there. By the time she was here she continued to complain of lower abdominal pain but she was not having any vomiting. She did receive Zofran there and her nausea seems to be better controlled now. The patient was seen with an stable. Laboratory workup there was mostly unremarkable but did show mild hypokalemia 3.4. Denies any headache, blurry vision, fever, chills, chest pain, shortness breath, urinary symptoms, or neurological symptoms. Past Med Surg Social Fam HX - Past Medical History Medical history: arthritis, asthma, COPD, hyperlipidemia, hypertension, thyroid disease, TIA, other Additional medical history: adrenal disease Psychiatric history: depression - Past Surgical History Surgical History: cholecystectomy, hysterectomy Additional surgical history: pituitary gland surgery x 2, back surgery x 2, liver bile duct sx - Social History Smoking Status: Current every day smoker Smokeless Tobacco Status: No Alcohol use: none Drug use: none - Family History Mother Living Status: Hx Family Cardiac Disorders: No Hx Family Respiratory Disorders: No Hx Family Cancer: Yes (ovarian and breast cancer) Hx Family GI Disorders: No Hx Family Endocrine Disorder: No Hx Family Neuromuscular Disorders: No Hx Family Neurologic Disorders: No Hx Family HEENT Disorders: No Hx Family Autoimmune Disorders: No Internal Medicine - H&P: Meds FLUoxetine HCl [Prozac] 20 mg PO QAM 10/23/15 [History] Hydrocortisone [Cortef] 5 mg PO QPM 10/23/15 [History] LORazepam [Ativan] 1 mg PO BID PRN 10/23/15 [History] Levothyroxine [Synthroid] 112 mcg PO QAM 10/23/15 [History] Oxycodone HCl/Acetaminophen [Percocet 5-325 mg Tablet] 0.5 - 1 each PO TID PRN 10/23/15 [History] Pravastatin Sodium [Pravachol] 80 mg PO QPM 10/23/15 [History] hydroCHLOROthiazide [Hydrochlorothiazide] 25 mg PO DAILY 10/23/15 [History] Hydrocortisone [Cortef] 20 mg PO QAM 08/20/16 [History] Omeprazole [PriLOSEC] 40 mg PO DAILY #30 capsule. 08/21/16 [Rx] 3 Allergy/AdvReac Type Severity Reaction Status Date / Time acetaminophen [From Vicodin] Allergy Shakiness Verified 01/05/18 10:24 hydrocodone [From Vicodin] Allergy Shakiness Verified 01/05/18 10:24 Iodinated Contrast- Oral and Allergy Rash Verified 01/05/18 10:24 IV Dye [Iodinated Contrast Media - IV Dye] iodine Allergy Rash Verified 01/05/18 10:24 morphine Allergy Rash Verified 01/05/18 10:24 Penicillins [PCN] Allergy Rash Verified 01/05/18 10:24 All Systems PM: A 10-system review of systems was performed and is negative for pertinent findings except as documented above in the HPI. Review of systems: All systems reviewed are negative except for as mentioned above - Constitutional Vitals: Temp Pulse Resp BP Pulse Ox 97.6 F 62 18 104/67 92 01/05/18 15:08 01/05/18 15:08 01/05/18 15:08 01/05/18 15:08 01/05/18 15:08 Exam: GEN: NAD HEENT: AT, NC, No cyanosis, oral mucosa is moist, No JVD Lymphatics: No lymphadenoapthy Eyes: Extrocular muscles intact, anicteric CVS:RRR. S1, S2, No m/r/g RESP: CTAB ABD: Soft, generalized abdominal tenderness mostly prominent in the lower abdomen with no rebound, ND, hypoactive bowel sounds EXT: No edema, No rashes, 2+ DP NEURO: Nonfocal, CN II-XII intact, No focal motor or sensory deficits Psych: Cooperative, Not anxious or depressed - Assessment and plan (1) Bowel obstruction Current Visit: Yes Status: Acute Assessment and plan: Admit to hospitalist. Conservative management for now with IV fluids, pain control, antiemetics. Consult surgery. Nothing by mouth. Check CT abdomen and pelvis with oral contrast. Qualifiers: Intestinal obstruction type: unspecified Intestinal obstruction extent: partial Qualified Code(s): K56.600 - Partial intestinal obstruction, unspecified as to cause (2) Hypertension Current Visit: No Status: Chronic Assessment and plan: Resume home antihypertensives. Qualifiers: Hypertension type: essential hypertension Qualified Code(s): I10 - Essential (primary) hypertension (3) Pituitary insufficiency Current Visit: No Status: Chronic Assessment and plan: Resume home meds (4) DVT prophylaxis Current Visit: Yes Status: Acute Assessment and plan: Hypotensive. - Time Spent With Patient Total time spent is greater than 50% in coordination of care (as documented) at patient's floor/unit and/or counseling patient:
[2018-01-05] MEDS: Ondansetron 4 MG/2 ML VIAL IVP PRN (16:51)
[2018-01-05] MEDS: 0.9 % Sodium Chloride 1,000 ML IVC SCH (16:52)
[2018-01-05] MEDS ORDERED: Prochlorperazine 10 MG/2 ML VIAL IVP ONE (20:45)
[2018-01-05] MEDS: Acetaminophen 325 MG TABLET PO PRN (21:19)
[2018-01-05] MEDS: *HR* Heparin 5,000 UNIT/ML VIAL SQ SCH (21:20)
[2018-01-06] MEDS: 0.9 % Sodium Chloride 1,000 ML IVC SCH ×2 (01:27→09:21)
[2018-01-06] MEDS ORDERED: Acetaminophen/Aspirin/Caffeine TABLET PO ONE (01:58)
[2018-01-06] MEDS: Ondansetron 4 MG/2 ML VIAL IVP PRN (03:38)
[2018-01-06] MEDS ORDERED: *HR* Promethazine 25 MG/ML VIAL IVP PRN (03:41)
[2018-01-06] MEDS: Hydrocortisone 10 MG TABLET PO SCH ×3 (05:09→17:59)
[2018-01-06 05:53] LABS: Basophils % 0.5 %; Eosinophils # 0.2 K/mcL (0.0-0.6); Eosinophils % 2.3 %; Hematocrit 41.6 % (35.3-44.9); Hemoglobin 13.7 g/dL (11.5-15.4); Immature Granulocytes % 0.4 % (0-4); Lymphocytes # 2.5 K/mcL (0.6-4.6); Lymphocytes % 34.1 %; Mean Corpuscular HGB Conc 32.9 g/dL (31.6-35.5); Mean Corpuscular Hemoglobin 29.2 pg (28.0-33.3); Mean Corpuscular Volume 88.7 fL (83.0-100.0); Mean Platelet Volume 10.1 fL (9.4-12.4); Monocytes # 0.7 K/mcL (0.0-1.3); Neutrophils # 3.9 K/mcL (1.6-8.9); Platelet Count 161 K/mcL (140-400); Red Blood Count 4.69 M/mcL (3.82-4.97); Red Cell Distribution Width 14.7 % (11.5-14.5); Segmented Neutrophils % 52.7 %
[2018-01-06 06:00] LABS: Prothrombin Time 10.6 Seconds (9.4-12.1)
[2018-01-06] MEDS: *HR* Heparin 5,000 UNIT/ML VIAL SQ SCH ×3 (06:03→21:47)
[2018-01-06 06:12] LABS: BUN/Creatinine Ratio 22 (6-26); Blood Urea Nitrogen 13 mg/dL (8-23); Calcium 8.6 mg/dL (8.6-10.3); Carbon Dioxide 25 mEq/L (23-29); Chloride 109 mEq/L (98-107); Glucose 97 mg/dL (70-105); Osmolality,Calculated 288 (280-300); Potassium 3.7 mEq/L (3.5-5.1); Sodium 139 mEq/L (136-145); eGFR For African Americans > 60 (> 60); eGFR For Non-African Americans > 60 (> 60)
[2018-01-06] MEDS: Acetaminophen 325 MG TABLET PO PRN ×2 (07:44→14:21)
[2018-01-06] MEDS: FLUoxetine 20 MG CAPSULE PO SCH (09:21)
[2018-01-06] MEDS: hydroCHLOROthiazide 25 MG TABLET PO SCH (09:21)
--- NOTE | 2018-01-06 10:59 | General Surgery Consult Note ---
Date of Encounter: 01/06/18 Time of Encounter: 10:59 Assessment and Plan (1) Abdominal pain Current Visit: No Status: Resolved She was seen at [facility] emergency department and transferred to [facility] for for their evaluation. Dr. Dejesus was consult it yesterday and recommended the patient complete a CT of the abdomen and pelvis with oral contrast. The CT demonstrates that oral contrast has reached the cecum. Early findings may be related to enteritis associated ileus. Her white blood cell count is normal. Currently she reports that she is "very hungry." She request a banana to eat. She states her symptoms have resolved and she would like to go home. No surgical indication at this time. Given that contrast has reached the cecum and there is resolution of her symptoms, it is acceptable to trial clear liquid diet and advanced diet as tolerated. Surgery will sign off at this time. Please reconsult if questions or needs arise. Qualifiers: Abdominal location: lower abdomen, unspecified Qualified Code(s): R10.30 - Lower abdominal pain, unspecified (2) Vomiting Current Visit: Yes Status: Acute Qualifiers: Vomiting type: unspecified Vomiting Intractability: non-intractable Nausea presence: with nausea Qualified Code(s): R11.2 - Nausea with vomiting, unspecified History of Present Illness Consult date: 01/05/18 (Dr. Dmitriy Dejesus) Reason for consult: abdominal pain Requesting physician: Sarah Harris History of present illness: Marium is a 67 year old female who has a past medical history of smoking, COPD, asthma, arthritis, hypertension, thyroid disease, and GERD. She has a surgical history of hysterectomy and cholecystectomy. She presented to the emergency department on 01/05/2018 for a one-day history of intractable nausea and vomiting associated with abdominal pain. She reports that she had "possibly had a history of the bowel obstruction." She states she had had a bowel movement the morning of the onset of symptoms that was soft and brown. She denies any changes in bowel habits. She denies black, bloody, or tarry stool. She denies coffee ground emesis. She denies fever, chills, urinary signs or symptoms. She reports that she has a headache because she has not had any caffeine and states her previous symptoms have currently resolved. She endorses soreness to touch in the lower abdomen. Past Med Surg Social Fam HX - Past Medical History Medical history: arthritis, asthma, COPD, hyperlipidemia, hypertension, thyroid disease, TIA, other Additional medical history: adrenal disease Psychiatric history: depression - Past Surgical History Surgical History: cholecystectomy, hysterectomy Additional surgical history: pituitary gland surgery x 2, back surgery x 2, liver bile duct sx - Social History Smoking Status: Current every day smoker Smokeless Tobacco Status: No Alcohol use: none Drug use: none - Family History Mother Living Status: Hx Family Cardiac Disorders: No Hx Family Respiratory Disorders: No Hx Family Cancer: Yes (ovarian and breast cancer) Hx Family GI Disorders: No Hx Family Endocrine Disorder: No Hx Family Neuromuscular Disorders: No Hx Family Neurologic Disorders: No Hx Family HEENT Disorders: No Hx Family Autoimmune Disorders: No Medications and Allergies Hydrocortisone [Cortef] 5 mg PO QPM 10/23/15 [History] LORazepam [Ativan] 1 mg PO BID PRN 10/23/15 [History] Levothyroxine [Synthroid] 112 mcg PO QAM 10/23/15 [History] Oxycodone HCl/Acetaminophen [Percocet 5-325 mg Tablet] 0.5 - 1 each PO TID PRN 10/23/15 [History] Pravastatin Sodium [Pravachol] 80 mg PO QPM 10/23/15 [History] hydroCHLOROthiazide [Hydrochlorothiazide] 25 mg PO DAILY 10/23/15 [History] Hydrocortisone [Cortef] 20 mg PO QAM 08/20/16 [History] Omeprazole [PriLOSEC] 40 mg PO DAILY #30 capsule. 08/21/16 [Rx] FLUoxetine HCl [Fluoxetine HCl] 40 mg PO DAILY 01/06/18 [History] 3 Allergy/AdvReac Type Severity Reaction Status Date / Time acetaminophen [From Vicodin] Allergy Shakiness Verified 01/05/18 10:24 hydrocodone [From Vicodin] Allergy Shakiness Verified 01/05/18 10:24 Iodinated Contrast- Oral and Allergy Rash Verified 01/05/18 10:24 IV Dye [Iodinated Contrast Media - IV Dye] iodine Allergy Rash Verified 01/05/18 10:24 morphine Allergy Rash Verified 01/05/18 10:24 Penicillins [PCN] Allergy Rash Verified 01/05/18 10:24 Review of Systems All systems PM: reviewed and no additional remarkable complaints except as stated All systems PM: The remainder of the systems were reviewed and are negative General Surgery Exam Initial Vital Signs Temp Pulse Resp BP Pulse Ox 97.6 F 62 18 104/67 92 01/05/18 15:08 01/05/18 15:08 01/05/18 15:08 01/05/18 15:08 01/05/18 15:08 VITAL SIGNS: Reviewed. See [facility] GENERAL: In no apparent distress. HEENT: [Normocephalic, atraumatic, pupils are equal and reactive, extraocular motions intact, oropharynx is pink and moist, there is no neck adenopathy or JVD noted.] CHEST/RESPIRATORY: The thorax is free from signs of trauma. Lung sounds: [clear to auscultation, normal respiratory effort] CARDIAC: [Regular rate and rhythm. Normal S1 and S2, without murmurs, gallops, or rubs.] VASCULAR: [No Edema. 2+ peripheral pulses.] ABDOMEN: [ soft, active bowel sounds, mild tenderness in the low abdomen to deep palpation ] MUSCULOSKELETAL: [Good range of motion of all major joints. Extremities without clubbing, cyanosis or edema.] NEUROLOGIC EXAM: [Alert and oriented x 3. Speech normal. Follows commands.] PSYCHIATRIC: [Mood normal.] SKIN: [No rash or lesions.] Exam Initial Vital Signs Temp Pulse Resp BP Pulse Ox 97.6 F 62 18 104/67 92 01/05/18 15:08 01/05/18 15:08 01/05/18 15:08 01/05/18 15:08 01/05/18 15:08 Results - Labs 01/06/18 05:31 01/06/18 05:31 Abnormal lab results RDW 14.7 % (11.5-14.5) H 01/06/18 05:31 Chloride 109 mEq/L (98-107) H 01/06/18 05:31 POC Glucose 105 mg/dL (70-99) H 01/06/18 05:05 Diabetes panel 01/06/18 Range/Units 05:31 Sodium 139 (136-145) mEq/L Potassium 3.7 (3.5-5.1) mEq/L Chloride 109 H (98-107) mEq/L Carbon Dioxide 25 (23-29) mEq/L BUN 13 (8-23) mg/dL Creatinine 0.60 (0.60-1.20) mg/dL Glucose 97 (70-105) mg/dL Calcium 8.6 (8.6-10.3) mg/dL Calcium panel 01/06/18 Range/Units 05:31 Calcium 8.6 (8.6-10.3) mg/dL Pituitary panel 01/06/18 Range/Units 05:31 Sodium 139 (136-145) mEq/L Potassium 3.7 (3.5-5.1) mEq/L Chloride 109 H (98-107) mEq/L Carbon Dioxide 25 (23-29) mEq/L BUN 13 (8-23) mg/dL Creatinine 0.60 (0.60-1.20) mg/dL Glucose 97 (70-105) mg/dL Calcium 8.6 (8.6-10.3) mg/dL Adrenal panel 01/06/18 Range/Units 05:31 Sodium 139 (136-145) mEq/L Potassium 3.7 (3.5-5.1) mEq/L Chloride 109 H (98-107) mEq/L Carbon Dioxide 25 (23-29) mEq/L BUN 13 (8-23) mg/dL Creatinine 0.60 (0.60-1.20) mg/dL Glucose 97 (70-105) mg/dL Calcium 8.6 (8.6-10.3) mg/dL All other labs normal. - Imaging CT scan - abdomen: report reviewed CT scan - pelvis: report reviewed Consult Discharge Plan - Plan Referrals: Arnold Tanner MD [Primary Care Provider] -
[2018-01-06] MEDS: Nicotine 21 MG PATCH.TD24 TD SCH (11:49)
[2018-01-06] MEDS: *HR* OxyCODONE/APAP 5/325 TABLET PO PRN ×2 (12:53→20:03)
[2018-01-06] MEDS ORDERED: *HR* LORazepam 1 MG TABLET PO PRN (18:12)
--- NOTE | 2018-01-06 18:22 | Internal Med Progress Note ---
Date of Encounter: 01/06/18 Time of Encounter: 13:30 - Assessment and plan (1) Bowel obstruction Current Visit: Yes Status: Acute Assessment and plan: Seems to be doing somewhat better. Will increase diet and see how she does tonight. Continue home meds and pain control. Qualifiers: Intestinal obstruction type: unspecified Intestinal obstruction extent: partial Qualified Code(s): K56.600 - Partial intestinal obstruction, unspecified as to cause (2) Hypertension Current Visit: No Status: Chronic Assessment and plan: home antihypertensives. Qualifiers: Hypertension type: essential hypertension Qualified Code(s): I10 - Essential (primary) hypertension (3) Pituitary insufficiency Current Visit: No Status: Chronic Assessment and plan: Resume home meds (4) DVT prophylaxis Current Visit: Yes Status: Acute - Time Spent With Patient Total time spent is greater than 50% in coordination of care (as documented) at patient's floor/unit and/or counseling patient: - Subjective Interval history: Ms Stokes is currently admitted for possible SBO. She remains moderate to high risk due to potential for worsening clinical status. Ms Stokes has less abd pain. She has been tolerating clear liquids. No fever or chills. Appreciate surgery input. - Constitutional Vitals: Temp Pulse Resp BP Pulse Ox 98.1 F 67 12 147/78 93 01/06/18 15:03 01/06/18 15:03 01/06/18 15:03 01/06/18 15:03 01/06/18 15:03 General appearance: Present: A&O X 3, answers questions appropriately - Head Head exam: Present: normocephalic - Eye Eye exam: Present: conjuntiva pink - ENT ENT exam: Present: mucous membranes moist - Respiratory Respiratory exam: Present: CTAB. Absent: rhonchi, wheezes - Cardiovascular Cardiovascular exam: Present: RRR. Absent: tachycardia - GI/Abdominal GI/Abdominal exam: Present: soft. Absent: tenderness - Extremities Exam Extremities exam: Present: warm. Absent: tenderness - Neurological Exam Neurological exam: Present: alert, oriented X3 - Skin Skin exam: Present: dry, warm Internal Medicine: Result - Labs CBC & Chem 7: 01/06/18 05:31 01/06/18 05:31 Labs: Short CBC 01/06/18 Range/Units 05:31 WBC 7.3 (4.3-11.1) K/mcL Hgb 13.7 D (11.5-15.4) g/dL Hct 41.6 (35.3-44.9) % Plt Count 161 (140-400) K/mcL Neutrophils # 3.9 (1.6-8.9) K/mcL BMP 01/06/18 05:31 Sodium 139 Potassium 3.7 Chloride 109 H Carbon Dioxide 25 BUN 13 Creatinine 0.60 Glucose 97 Calcium 8.6 - ABG Interpretation ABG results: PT/INR, D-dimer PT 10.6 Seconds (9.4-12.1) 01/06/18 05:31 - Impressions Impressions Abdomen/Pelvis CT 01/05/18 18:45 IMPRESSION: Oral contrast has reached the cecum ruling out complete bowel obstruction. Earlier findings may be related to an enteritis with associated ileus. Mild pelvic free fluid. Diverticulosis coli. Bibasilar atelectasis and/or developing infiltrates. D/ / Cliff Gonzalez MD / Cliff Gonzalez MD Interpreting Provider: Cliff Gonzalez MD Consult Discharge Plan - Plan Referrals: Arnold Tanner MD [Primary Care Provider] -
[2018-01-07] MEDS: *HR* OxyCODONE/APAP 5/325 TABLET PO PRN ×2 (04:46→11:42)
[2018-01-07 05:41] LABS: Hemoglobin 13.9 g/dL (11.5-15.4); Mean Corpuscular HGB Conc 33.1 g/dL (31.6-35.5); Mean Corpuscular Hemoglobin 29.1 pg (28.0-33.3); Mean Corpuscular Volume 87.9 fL (83.0-100.0); Platelet Count 169 K/mcL (140-400); Red Blood Count 4.78 M/mcL (3.82-4.97); Red Cell Distribution Width 14.4 % (11.5-14.5)
[2018-01-07] MEDS: *HR* Heparin 5,000 UNIT/ML VIAL SQ SCH (06:19)
[2018-01-07 06:59] VITALS: BP 146/77
[2018-01-07 07:12] LABS: BUN/Creatinine Ratio 17 (6-26); Blood Urea Nitrogen 10 mg/dL (8-23); Calcium 9.4 mg/dL (8.6-10.3); Carbon Dioxide 26 mEq/L (23-29); Chloride 105 mEq/L (98-107); Glucose 100 mg/dL (70-105); Osmolality,Calculated 287 (280-300); Potassium 3.5 mEq/L (3.5-5.1); Sodium 139 mEq/L (136-145); eGFR For African Americans > 60 (> 60); eGFR For Non-African Americans > 60 (> 60)
[2018-01-07] MEDS: hydroCHLOROthiazide 25 MG TABLET PO SCH (08:28)
[2018-01-07] MEDS: Nicotine 21 MG PATCH.TD24 TD SCH (08:28)
[2018-01-07] MEDS: FLUoxetine 20 MG CAPSULE PO SCH (08:28)
[2018-01-07] MEDS: Hydrocortisone 10 MG TABLET PO SCH (08:28)
--- NOTE | 2018-01-07 10:26 | Discharge Summary ---
- NOTES TO OUTPATIENT PROVIDER Notes to Outpatient Provider: Pt admitted with concern for small bowel obstruction. She was seen by surgery and cleared for diet. She had bowel movement and tolerated diet. She was placed on short course of Cipro/Flagyl due to some inflammation. Date of Encounter: 01/07/18 Time of Encounter: 10:22 - Discharge Diagnosis (1) Bowel obstruction Priority: Primary Status: Resolved Qualifiers: Intestinal obstruction type: unspecified Intestinal obstruction extent: partial Qualified Code(s): K56.600 - Partial intestinal obstruction, unspecified as to cause (2) Enteritis Priority: Secondary Status: Acute (3) Hypertension Priority: Secondary Status: Chronic Qualifiers: Hypertension type: essential hypertension Qualified Code(s): I10 - Essential (primary) hypertension (4) Pituitary insufficiency Priority: Secondary Status: Chronic (5) Tobacco abuse Priority: Secondary Status: Chronic Hospital course: Ms. Stokes is a 67 year old female with hx of HTN and adrenal insufficiency transferred from [place] due to concern for small bowel obstruction. She had complaints of nausea and abdominal pain and CT showed possible partial SBO or enteritis. She was subsequently admitted. Ms Stokes was admitted to med surg. She was initially NPO. She was seen by surgical service and diet was ordered. She tolerated clear liquids and was advanced to regular consistency. She had bowel movement as well. Today she is afebrile with normal labs. She has some L side abd discomfort but no peritoneal signs. CT had concern for enteritis so she will be discharged on 1 week of Cipro/Flagyl with outpatient follow up. Discharge discussed with: patient Time spent discussing smoking cessation with patient: 3 to 10 minutes - Time Spent with Patient Total time spent providing and/or coordinating discharge services: 37min - Discharge Medications Prescriptions: Ciprofloxacin [Cipro] 500 mg PO BID #14 tablet metroNIDAZOLE [Flagyl] 500 mg PO TID #21 tablet Home Medications: Hydrocortisone [Cortef] 5 mg PO QPM 10/23/15 [History] LORazepam [Ativan] 1 mg PO BID PRN 10/23/15 [History] Levothyroxine [Synthroid] 112 mcg PO QAM 10/23/15 [History] Oxycodone HCl/Acetaminophen [Percocet 5-325 mg Tablet] 0.5 - 1 each PO TID PRN 10/23/15 [History] Pravastatin Sodium [Pravachol] 80 mg PO QPM 10/23/15 [History] hydroCHLOROthiazide [Hydrochlorothiazide] 25 mg PO DAILY 10/23/15 [History] Hydrocortisone [Cortef] 20 mg PO QAM 08/20/16 [History] Omeprazole [PriLOSEC] 40 mg PO DAILY #30 capsule. 08/21/16 [Rx] FLUoxetine HCl [Fluoxetine HCl] 40 mg PO DAILY 01/06/18 [History] Ciprofloxacin [Cipro] 500 mg PO BID #14 tablet 01/07/18 [Rx] Nicotine Patch [Nicoderm] 21 mg TD DAILY patch.td24 01/07/18 [Rx] metroNIDAZOLE [Flagyl] 500 mg PO TID #21 tablet 01/07/18 [Rx] Allergies/Adverse Reactions: 3 Allergy/AdvReac Type Severity Reaction Status Date / Time acetaminophen [From Vicodin] Allergy Shakiness Verified 01/05/18 10:24 hydrocodone [From Vicodin] Allergy Shakiness Verified 01/05/18 10:24 Iodinated Contrast- Oral and Allergy Rash Verified 01/05/18 10:24 IV Dye [Iodinated Contrast Media - IV Dye] iodine Allergy Rash Verified 01/05/18 10:24 morphine Allergy Rash Verified 01/05/18 10:24 Penicillins [PCN] Allergy Rash Verified 01/05/18 10:24 Date of admission: 01/05/18 14:30 Primary care physician: Arnold Tanner MD Consults: 01/05/18 16:00 Consult to Surgery [CONS] Routine Consulting Provider: [facility] Reason for Consult: bowel obstruction Call Completed: Yes Discharging clinician: Raghu Abad Anticipated date of discharge: 01/07/18 - Constitutional Vitals: Temp Pulse Resp BP Pulse Ox 97.9 F 55 16 146/77 92 01/07/18 06:40 01/07/18 06:40 01/07/18 06:40 01/07/18 06:40 01/07/18 06:40 General appearance: Present: A&O X 3, answers questions appropriately - Head Head exam: Present: normocephalic - Eye Eye exam: Present: EOMI, conjuntiva pink - ENT ENT exam: Present: mucous membranes moist - Respiratory Respiratory exam: Present: CTAB. Absent: rales, rhonchi, wheezes - Cardiovascular Cardiovascular exam: Present: RRR. Absent: systolic murmur, tachycardia - GI/Abdominal GI/Abdominal exam: Present: normal bowel sounds, soft, tenderness (Minimal tenderness L side.). Absent: guarding, mass, rebound - Extremities Exam Extremities exam: Present: warm. Absent: tenderness - Neurological Exam Neurological exam: Present: alert, oriented X3, no focal deficits - Skin Skin exam: Present: dry, warm - Patient Status Disposition: Home, Self-Care Condition: Good Functional capacity at discharge: independent ambulation Overall status at discharge: patient is progressing back to baseline - Discharge Instructions Follow Up With: Arnold Tanner MD [Primary Care Provider] - - Diet and Activity Activity: increase activity as tolerated Diet: advance to your usual diet
== END 2018-01-07 12:14 | disposition home or self-care (01) | DRG 389 ==
LOC: 3ANU 14:30 → SUATTDRO 14:30
PROVIDERS: ADMIT Internal Medicine; ATTEND Internal Medicine